=== PATIENT | male | born 1985 | race African-American/Black ===

== ENCOUNTER 2022-11-08 00:41 | Emergency (ER) | payer MEDICAID, SELFPAY ==
--- NOTE | ~2022-11-08 | XR_ITS ---
. EXAMINATION: XR ribs RT 2V DATE: 11/08/2022 01:36 INDICATION: Right lower rib pain. Fall. TECHNIQUE: 2 views of the right ribs on 4 radiographs were obtained. COMPARISON: None. FINDINGS: There is no right-sided pneumonia, pleural effusion, or pneumothorax. The heart size is nor mal. IMPRESSION: 1. No rib fracture. Reviewed, dictated and finalized at location A. IMPRESSION: 1. No rib fracture.
[2022-11-08 00:46] VITALS: BP 109/73; PULSE 67; RESP 14; TEMP 36.4; O2SAT 98
--- NOTE | 2022-11-08 01:30 | ED.GENADULT ---
HPI - General Adult General Chief complaint: Unspecified <PRASHANT Snyder Last Filed: 11/08/22 02:14> Stated complaint: R Rib pain <PRASHANT Snyder Last Filed: 11/08/22 02:14> Time Seen by Provider: 11/08/22 01:14 <PRASHANT Snyder Last Filed: 11/08/22 02:14> Source: patient <PRASAHNT Snyder Last Filed: 11/08/22 02:14> Mode of arrival: ambulatory <PRASHANT Snyder Last Filed: 11/08/22 02:14> Limitations: no limitations <PRASHANT Snyder Last Filed: 11/08/22 02:14> History of Present Illness HPI narrative: This is a 37-year-old male who presents to the ED with chief complaint of right rib pain following an injury just prior to arrival. Patient states that his floor was cluttered and he tripped over something on the floor which caused him to stumble. States he went into the back of the couch and hit the right side of the ribs. Denies any further site of pain or injury. Denies shortness of breath or cough. <PRASHANT Snyder Last Filed: 11/08/22 02:14> Related Data Allergies/adverse reactions: Allergies Allergy/AdvReac Type Severity Reaction Status Date / Time No Known Allergies Allergy Verified 11/08/22 02:17 <Yovani Hallman PA-C - Last Filed: 11/08/22 02:14> Review of Systems Review of Systems: CONSTITUTIONAL: Denies fever, chills, or sweats. EYES: Denies visual changes, redness, or discharge. ENT: Denies rhinorrhea, congestion, sore throat, or otalgia. CARDIOVASCULAR: Denies chest pain, palpitations, or edema. RESPIRATORY: See HPI GASTROINTESTINAL: Denies abdominal pain, nausea, vomiting, or diarrhea. GENITOURINARY: Denies dysuria or hematuria. SKIN: Denies rash or itching. MUSCULOSKELETAL: Denies back pain, joint pain, or myalgia. NEUROLOGIC: Denies headache, numbness, dizziness, or weakness. PSYCHIATRIC: Denies anxiety or depression. <Yovani Hallman PA-C - Last Filed: 11/08/22 02:14> Exam Narrative: GENERAL: Well-appearing, well-nourished, and in no acute distress. HEAD: Normocephalic, atraumatic. EYES: PERRLA and EOMI. ENT: Nares clear, no rhinorrhea or epistaxis. Mucous membranes moist. Oropharynx without tonsillar hypertrophy exudate or other lesions. NECK: Supple. No adenopathy or masses. CHEST: No respiratory distress. Clear to auscultation. No wheezes rales or rhonchi. Reproducible tenderness to the right anterior lower ribs. Equal chest expansion. HEART: Regular rate and rhythm. No murmur heard. Normal peripheral pulses. ABDOMEN: Soft, nontender, nondistended, normal active bowel sounds. MSK: Normal range of motion. No edema. SKIN: Warm, dry, no rash. NEURO: Alert and oriented x3. No focal deficits. PSYCH: Normal mood and affect. 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 I performed all aspects of the MDM as documented w/ the following additions: 37-year-old presenting with rib pain after he stumbled into a chair. X-rays negative for fracture or rib fracture sequela. Patient discharged with pain medication and Incentive spirometer. All questions answered. Patient in agreement w/ disposition. <Ok Wang MD - Last Filed: 11/08/22 23:30> Vital Signs Vital signs: Vital Signs Temperature 97.6 F 11/08/22 00:46 Pulse Rate 67 11/08/22 00:46 Respiratory Rate 14 11/08/22 00:46 Blood Pressure 109/73 11/08/22 00:46 Pulse Oximetry 98 11/08/22 00:46 Oxygen Delivery Room Air 11/08/22 00:46 Temperature 97.6 F 11/08/22 00:46 Pulse Rate 72 11/08/22 02:20 Respiratory Rate 16 11/08/22 02:20 Blood Pressure 114/66 11/08/22 02:20 Pulse Oximetry 98 11/08/22 02:20 Oxygen Delivery Room Air 11/08/22 00:46 <Yovani Hallman PA-C - Last Filed: 11/08/22 02:14> Vital Signs Temperature 97.6 F 11/08/22 00:46 Pulse Rate 67 11/08/22 00:46 Respirator
[2022-11-08 02:20] VITALS: BP 114/66; PULSE 72; RESP 16; O2SAT 98
== END 2022-11-08 02:23 | disposition home or self-care (01) ==
PROVIDERS: Emergency Provider Physician Assistant
DX: S20.211A Contusion of right front wall of thorax, initial encounter (principal); W18.09XA Striking against other object with subsequent fall, initial encounter
CPT/HCPCS: 71100; 99283